=== PATIENT | male | born 1965 | race Hispanic/Latino ===

== ENCOUNTER 2021-06-20 06:00 | Observation (INO) | payer OTHER ==
[2021-06-18 14:50] VITALS: BP 148/76
[2021-06-18 15:20] LABS: BASOPHILS % (AUTO) 0.6 % (0.0-5.0); EOSINOPHILS % (AUTO) 1.5 % (0.0-8.0); HEMATOCRIT 33.8 % (42-54); LYMPHOCYTES % (AUTO) 30.3 % (21.0-51.0); MEAN CORPUSCULAR HEMOGLOBIN 29.1 pg (27.0-33.0); MEAN CORPUSCULAR VOLUME 91.1 fL (79-99); MONOCYTES % (AUTO) 5.7 % (3.0-13.0); NEUTROPHILS % (AUTO) 61.5 % (40.0-77.0); PLATELET COUNT (AUTO) 353 K/uL (130-400); RED BLOOD CELL COUNT(AUTO) 3.71 MIL/uL (4.50-6.20); RED CELL DISTRIBUTION WIDTH 15.5 % (11.0-15.5); WHITE BLOOD COUNT (AUTO) 6.7 K/uL (4.8-10.8)
[2021-06-18 15:25] LABS: INR 0.93 (0.85-1.15); PROTHROMBIN TIME 10.1 SEC (9.6-11.6)
[2021-06-18 15:27] LABS: ALBUMIN 2.2 g/dL (3.5-5.0); BILIRUBIN,TOTAL 0.2 mg/dL (0.2-1.0); CREATININE 1.2 mg/dL (0.5-1.5); POTASSIUM 3.5 mmol/L (3.5-5.1); TOTAL PROTEIN, SERUM 6.5 g/dL (6.0-8.3)
[~2021-06-20] VITALS: Ht 180.3 cm; Wt 71.7 kg
[2021-06-20] VITALS (18 sets, daily range): BP systolic 131–164; BP diastolic 62–78
[~2021-06-20 06:00] MED LIST: AMLO-257 PO; ATOR40TA71 PO; FERR-72 PO; FOLI1 PO; FURO20TA4 PO; GLIP5TAB11 PO; HYDR100T27 PO; IRBE300T18 PO; METF-444 PO; METF-446 PO; METO-409 PO; OMEP40CA21 PO; SUCR1TAB2 PO
[2021-06-20] MEDS ORDERED: LIDOCAINE 1%-EPI 1:100,000 20 ML VIAL IJ ONE (06:29)
[2021-06-20] MEDS ORDERED: BACITRACIN 28.4 GM OINT TP ONE (06:41)
[2021-06-20] MEDS ORDERED: 0.9%NACL 1000ML 1,000 ML IV ONE (06:43)
[2021-06-20] MEDS: CEFAZOLIN SODIUM 1 GM VIAL IVP SCH ×2 (07:00→07:45)
[2021-06-20] MEDS ORDERED: SUCCINYLCHOLINE CHLORIDE 20 MG/ML 10 ML VIAL ONE (07:06)
[2021-06-20] MEDS ORDERED: LIDOCAINE PF 100MG/5ML (2%) SYRINGE 5ML ONE (07:06)
[2021-06-20] MEDS ORDERED: MIDAZOLAM HCL 1 MG/ML 2ML VIAL ONE (07:06)
[2021-06-20] MEDS ORDERED: DEXAMETHASONE SOD PHOSPHATE 10MG/ML 1ML VIAL ONE (07:06)
[2021-06-20] MEDS ORDERED: FENTANYL CITRATE PF 50 MCG/1 ML 2ML VIAL ONE (07:07)
[2021-06-20] MEDS ORDERED: NEOSTIGMINE 5MG/5ML SYR IV ONE (07:07)
[2021-06-20] MEDS ORDERED: ROCURONIUM 10MG/1ML SYR 10 MG/ML ML ONE (07:07)
[2021-06-20] MEDS ORDERED: PROPOFOL 10 MG/ML 20ML VIAL IV ONE (07:07)
[2021-06-20] MEDS ORDERED: ONDANSETRON 4MG INJ ONE (07:07)
[2021-06-20] MEDS ORDERED: GLYCOPYRROLATE 1 MG/5 ML SYRINGE ONE (07:07)
[2021-06-20] MEDS ORDERED: FAMOTIDINE 20MG VIAL IV ONE (07:12)
[2021-06-20] MEDS ORDERED: PHENYLEPHRINE HCL 10 MG/ML 1ML VIAL IV ONE (07:51)
[2021-06-20] MEDS ORDERED: EPHEDRINE SULFATE 50 MG/ML AMPULE ONE (08:17)
[2021-06-20] MEDS ORDERED: MEPERIDINE-PF 25 MG/ML SYG ONE (12:25)
[2021-06-20] MEDS ORDERED: ONDANSETRON 4MG INJ IVP PRN (17:00)
[2021-06-20] MEDS ORDERED: OXYCODONE HCL 5 MG TAB PO PRN (17:00)
[2021-06-20] MEDS: ACETAMINOPHEN 500 MG TABLET PO SCH ×2 (17:52→23:31)
[2021-06-20] MEDS: SUCRALFATE 1 GM TABLET PO SCH (20:37)
[2021-06-20] MEDS: FUROSEMIDE 20 MG TABLET PO SCH (20:38)
[2021-06-20] MEDS: METFORMIN HCL 500 MG TABLET PO SCH (20:38)
[2021-06-20] MEDS: HYDRALAZINE 25MG TABLET PO SCH (20:38)
[2021-06-20] MEDS: FERROUS SULFATE 325 MG TABLET.DR PO SCH (20:38)
[2021-06-20] MEDS ORDERED: ATORVASTATIN 40 MG TABLET PO SCH (21:00)
[2021-06-21] MEDS: ACETAMINOPHEN 500 MG TABLET PO SCH (04:48)
[2021-06-21] MEDS: METFORMIN HCL 500 MG TABLET PO SCH (08:20)
[2021-06-21] MEDS: SUCRALFATE 1 GM TABLET PO SCH (08:20)
[2021-06-21] MEDS: FUROSEMIDE 20 MG TABLET PO SCH (08:21)
[2021-06-21] MEDS: FERROUS SULFATE 325 MG TABLET.DR PO SCH (08:21)
[2021-06-21] MEDS: HYDRALAZINE 25MG TABLET PO SCH (08:22)
[2021-06-21] MEDS ORDERED: GLIPIZIDE 5 MG TABLET PO SCH (09:00)
[2021-06-21] MEDS ORDERED: METOPROLOL SUCCINATE 50 MG TAB.SR.24H PO SCH (09:00)
[2021-06-21] MEDS ORDERED: PANTOPRAZOLE 40 MG TAB DR PO SCH (09:00)
[2021-06-21] MEDS ORDERED: Irbesartan 300 MG PO SCH (09:00)
[2021-06-21] MEDS ORDERED: FOLIC ACID 1 MG TABLET PO SCH (09:00)
[2021-06-21] MEDS ORDERED: AMLODIPINE 5 MG TAB PO SCH (09:00)
[2021-06-21] MEDS ORDERED: METFORMIN HCL 500 MG TABLET PO SCH (12:00)
== END 2021-06-21 10:40 | disposition home or self-care (01) ==
LOC: DAH 06:00 → DAHIP 06:01 → 3AH 14:43
PROVIDERS: ADMIT Otolaryngology; ATTEND Otolaryngology
DX: D11.0 Benign neoplasm of parotid gland (principal); Z20.822 Contact with and (suspected) exposure to COVID-19; D49.0 Neoplasm of unspecified behavior of digestive system; I10 Essential (primary) hypertension; R22.0 Localized swelling, mass and lump, head; E11.9 Type 2 diabetes mellitus without complications; Z79.899 Other long term (current) drug therapy; Z98.890 Other specified postprocedural states
CPT/HCPCS: 36415 ×2; 42415; 71045; 80053; 82948 ×3; 85025; 85610; 85730; 87635; A4215; A4221; A4222; A4223; A4344; A4649 ×2; A4663; A4930; A6206; A6260; A6446; C9803; G0378 ×18; J0330; J0690; J1100; J2001; J2175; J2250; J2370; J2405; J2704; J3010; J3490 ×4; J7030 ×2; J2710